=== PATIENT | male | born 1960 | race Caucasian/White ===

== ENCOUNTER 2016-09-21 09:08 | Emergency (ER) | payer OTHER ==
[2016-09-21 09:14] VITALS: O2SAT 98
[2016-09-21 09:15] VITALS: BMI 28.4
--- NOTE | 2016-09-21 10:04 | ED PDOC ---
Lower Extremity Pain/Injury Time Seen by Provider: 09/21/16 09:42 Chief Complaint (Nursing): Lower Extremity Problem/Injury Chief Complaint (Provider): Right foot swelling and pain History Per: Patient History/Exam Limitations: no limitations Onset/Duration Of Symptoms: Days (x2 days) Current Symptoms Are (Timing): Still Present Pain Scale Rating Of: 10 Additional History Per: Family Additional Complaint(s): Galileo Lucas is a 56-year-old male who was brought by family to the emergency department for an evaluation of the right foot for swelling/pain and nausea, ongoing x2 days. Patient first noticed the swelling yesterday morning when he woke up and iced the area without relief. The swelling has increased over the past 24 hours. Patient reports being unable to sleep last night due to pain. Denies taking medications for the relief of symptoms, fever, fall and injury. PMD: None reported Past Medical History Reviewed: Historical Data, Nursing Documentation, Vital Signs Vital Signs: Last Vital Signs Temp 97 F L 09/21/16 09:13 Pulse 66 09/21/16 09:13 Resp BP 112/57 L 09/21/16 09:13 Pulse Ox 98 09/21/16 09:13 - Medical History PMH: No Chronic Diseases - Surgical History Surgical History: Cholecystectomy - Family History Family History: States: Unknown Family Hx - Social History Current smoker - smoking cessation education provided: No Alcohol: None Drugs: Denies - Home Medications Home Medications: Ambulatory Orders Medication Instructions Recorded Erythromycin 0.5% [Erythromycin] 1 applic RIGHTEYE Q6 #1 tube 09/13/15 Tramadol HCl [Ultram] 50 mg PO BID PRN #30 tablet 09/13/15 Naproxen [Naprosyn] 500 mg PO BID PRN #20 tablet 09/21/16 - Allergies Allergies/Adverse Reactions: Allergies Allergy/AdvReac Type Severity Reaction Status Date / Time Penicillins Allergy RASH Verified 09/13/15 20:50 Review of Systems ROS Statement: Except As Marked, All Systems Reviewed And Found Negative Constitutional: Negative for: Fever, Other (Fall or injury) Gastrointestinal: Positive for: Nausea Musculoskeletal: Positive for: Foot Pain (Right foot swelling and pain) Physical Exam - Reviewed Nursing Documentation Reviewed: Yes Vital Signs Reviewed: Yes - Physical Exam Appears: Positive for: Non-toxic, No Acute Distress Head Exam: Positive for: ATRAUMATIC, NORMAL INSPECTION, NORMOCEPHALIC Skin: Positive for: Normal Color, Warm, Dry Eye Exam: Positive for: EOMI, Normal appearance, PERRL Neck: Positive for: Normal, Painless ROM, Supple Pulses-Dorsalis Pedis (L): 2+ Pulses-Dorsalis Pedis (R): 2+ Extremity: Positive for: Tenderness (Right foot), Swelling (Erythema to the lateral malleolar area with edema. Sensation intact). Negative for: Normal ROM Neurologic/Psych: Positive for: Alert, Oriented. Negative for: Motor/Sensory Deficits - Laboratory Results Result Diagrams: 09/21/16 10:13 07 10:13 - ECG O2 Sat by Pulse Oximetry: 98 (RA) Pulse Ox Interpretation: Normal Medical Decision Making Medical Decision Making: Time: 10:00 Initial impression: Right foot swelling Initial plan: ---CMP ---CBC ---Uric acid ---PTT ---Prothrombin time ---X-Ray right ankle ---X-Ray right foot ---Toradol 15 mg IM ---Reassessment Time: 12: 17 --X-ray of the ankle and foot show no significant abnormalities (read by me). --Pending podiatry cash person to come and evaluate patient. Pt evaluated by Podiatry, findings c/w gout. Discharge home with NSAIDs to follow-up with Podiatry Clinic. Scribe Attestation: Documented by Analy Ivey, acting as a scribe for Katja Yuen MD. Provider Scribe Attestation: All medical record entries made by the Scribe were at my direction and personally dictated by me. I have reviewed the chart and agree that the record accurately reflects my personal performance of the history, physical exam, medical decision making, and the department course for this patient. I have also personally directed, reviewed, and agree with the discharge instructions and disposition. Disposition - Clinical Impression Clinical Impression: Gout of ankle - Disposition Referrals: Podiatry Clinic [Outside] Disposition: Routine/Home Disposition Time: 13:36 Condition: STABLE Prescriptions: Naproxen [Naprosyn] 500 mg PO BID PRN #20 tablet PRN Reason: Pain, Moderate (4-7) Instructions: Gout (ED) Print Language: MALTESE
[2016-09-21 10:18] LABS: BASO % 0.4 % (0.0-2.0); EOS # 0.1 K/uL (0.0-0.7); HEMOGLOBIN 15.6 g/dL (12.0-18.0); LYMPH # 1.5 K/uL (1.0-4.3); LYMPH % 18.7 % (20.0-40.0); MEAN CORPUSCULAR HEMOGLOBIN 29.8 pg (27.0-31.0); MEAN CORPUSCULAR HGB CONC 34.3 g/dL (33.0-37.0); MONO # 0.9 K/uL (0.0-0.8); MONO % 10.9 % (0.0-10.0); NEUT # 5.5 K/uL (1.8-7.0); NRBC % 0.1 % (0.0-0.0); RBC 5.23 Mil/uL (4.40-5.90); RED CELL DISTRIBUTION WIDTH 13.6 % (11.5-14.5)
[2016-09-21 10:35] LABS: ALB/GLOB RATIO 1.4 (1.0-2.1); ALBUMIN 4.4 g/dL (3.5-5.0); ALT/SGPT 60 U/L (21-72); AST/SGOT 36 U/L (17-59); BLOOD UREA NITROGEN 24 mg/dl (9-20); CALCIUM 9.4 mg/dL (8.4-10.2); GFR AFRICAN-AMERICAN > 60; GFR NON-AFRICAN AMERICAN > 60; URIC ACID 4.1 mg/Dl (3.5-8.5)
[2016-09-21 10:41] LABS: PARTIAL THROMBOPLASTIN TIME 31.8 Seconds (25.6-37.1); PROTHROMBIN TIME 11.7 Seconds (9.8-13.1)
[2016-09-21 14:07] VITALS: BP 126/78; PULSE 78; RESP 19; TEMP 97.6
--- NOTE | 2016-09-21 14:08 | RAD ---
PROCEDURE: Right Ankle Radiographs. HISTORY: Lateral pain, redness, swelling COMPARISON: None FINDINGS: BONES: No evidence of acute displaced fracture nor dislocation. Osseous structures appear intact. Talar dome intact. . JOINTS: Ankle mortise maintained. . There is a tiny osteophyte seen arising from the inferior tip of the medial malleolus with minor degenerative changes along the medial aspect of the tibiotalar articulation. Mild soft tissue swelling overlying the lateral and to a lesser degree medial malleoli. SOFT TISSUES: Normal. OTHER FINDINGS: None. IMPRESSION: No evidence of acute displaced fracture nor dislocation. Minor degenerative changes tibiotalar articulation changes. Mild soft tissue swelling lateral greater than medial.
--- NOTE | 2016-09-21 14:12 | RAD ---
PROCEDURE: Right Foot Radiographs. HISTORY: Lateral pain COMPARISON: None. FINDINGS: BONES: No evidence of acute displaced fracture nor dislocation. Probable old healed fracture deformity proximal aspect 3rd metatarsal JOINTS: Minor degenerative changes with small osteophytes seen arising from the anterior and inferior margins of the distal tibia. . SOFT TISSUES: Minor soft tissue swelling lateral greater than medial OTHER FINDINGS: None. IMPRESSION: No evidence of acute displaced fracture nor dislocation. . Probable old healed fracture deformity proximal 3rd metatarsal Minor degenerative changes medial aspect right tibiotalar articulation. Minor soft tissue swelling lateral greater than medial
--- NOTE | 2016-09-21 14:26 | CP.PCM.CON ---
History of Present Illness - History of Present Illness History of Present Illness: 56 y/o male with no significant PMHx seen at bedside in ED complaining of pain and swelling in his right ankle. Pt states that the pain started yesterday and it mckenzie progressively gotten worst from then on. Pt states that this morning his pain was 10/10 on VAS which prompted him to come to the ED. Pt states that he did not take any pain medications prior to his arrival to the ED. Pt denies of any trauma or injury to the foot. 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 Pt states that this happens in his knee joint as well as shoulder joint at time to time. Pt describes his diet as very red meat heavy. Pt denies of trying any new activity or new shoe gear. Pt denies of any recent F/V/C/SOB today. No other pedal complains are noted at this time. PMHx: denies PSHx: denies SHx: denies Allergies: Penicillins Review of Systems - Constitutional Constitutional: As Per HPI Past Patient History - Infectious Disease Hx of Infectious Diseases: None - Past Social History Alcohol: None Drugs: Denies - PSYCHIATRIC Hx Substance Use: No - SURGICAL HISTORY Hx Cholecystectomy: Yes - ANESTHESIA Hx Anesthesia: Yes Meds Home Medications: Home Medication List Medication Instructions Recorded Confirmed Type Naproxen [Naprosyn] 500 mg PO BID PRN #20 tablet 09/21/16 Rx Allergies/Adverse Reactions: Allergies Allergy/AdvReac Type Severity Reaction Status Date / Time Penicillins Allergy RASH Verified 09/13/15 20:50 Physical Exam - Constitutional Appears: Well, Non-toxic, No Acute Distress - Extremities Exam Additional comments: VASC: DP/PT pulses are palpable 2/4 b/l, DESKTOP ENGINEER: < 3 sec to all digits, temperature gradient is warm to cool on the left and warm to warm on the right, non-pitting edema with erythema noted on the lateral aspect of the right ankle as well as medial aspect DERM: no open lesions, no interdigital maceration, skin is intact with no puncturing of the skin surrounding the right ankle, no clinical suspicion of infection NEURO: protective sensation grossly intact ORTHO: MMT: 4/5 on the right and 5/5 on left during dorsiflexion, plantarflexion , inversion and eversion. slightly diminished ROM at the ankle joint on the right, pain upon palpation on the posterior lateral aspect of the lateral malleolus, diffuse pain surrounding the anterior ankle as well as medial ankle, mild pain on plantarflexion and eversion at the ankle joint, Parks test is negative, no pain on palpation of the calf b/l - Neurological Exam Neurological exam: Alert, Oriented x3 - Psychiatric Exam Psychiatric exam: Normal Affect, Normal Mood Results - Vital Signs Recent Vital Signs: Last Vital Signs Temp 97.6 F 09/21/16 14:04 Pulse 78 09/21/16 14:04 Resp 19 09/21/16 14:04 BP 126/78 09/21/16 14:04 Pulse Ox 98 09/21/16 14:04 - Labs Result Diagrams: 09/21/16 10:13 09/21/16 10:13 Labs: Laboratory Results - last 24 hr 09/21/16 09/21/16 09/21/16 10:13 10:13 10:13 WBC 8.0 RBC 5.23 Hgb 15.6 Hct 45.5 MCV 87.0 MCH 29.8 MCHC 34.3 RDW 13.6 Plt Count 148 MPV 10.0 Neut % (Auto) 69.0 Lymph % (Auto) 18.7 L Petroleum % (Auto) 10.9 H Eos % (Auto) 1.0 Baso % (Auto) 0.4 Neut # 5.5 Lymph # 1.5 Petroleum # 0.9 H Eos # 0.1 Baso # 0.0 PT 11.7 INR 1.0 APTT 31.8 Sodium 138 Potassium 3.8 Chloride 101 Carbon Dioxide 27 Anion Gap 13 BUN 24 H Creatinine 0.7 L Est GFR ( Amer) > 60 Est GFR (Non-Af Amer) > 60 Random Glucose 97 Uric Acid 4.1 Calcium 9.4 Total Bilirubin 0.7 AST 36 ALT 60 Alkaline Phosphatase 88 Total Protein 7.6 Albumin 4.4 Globulin 3.2 Albumin/Globulin Ratio 1.4 Assessment & Plan - Assessment and Plan (Free Text) Assessment: 56 y/o male seen at bedside in ED for pain in the right ankle secondary to gouty attack Plan: Pt evaluated and chart reviewed Pt discussed in details with attending Dr. Veronica Vitals and labs reviewed (pt is afebrile, WBC @ 8.0 and uric acid levels are 4.1 ) x-rays taken and reviewed: no gross cristiane abnormalities noted, no fractures, no malalignment of the ankle joint noted Pt educated the possible etiology of the ankle pain and educated to change his diet Pt educated to elevate the leg and provide compression using an KAYCEE bandage Pt given an anti-inflammatory to manage his pain Pt educated to follow up in podiatry clinic Pt educated if the symptoms get worst or if any systemic symptomes are felt then return to ED sooner Pt demonstrated verbal understanding Pt stable from podiatry standpoint Thank you for podiatry consult - Date & Time Date: 09/21/16 Time: 14:37
== END 2016-09-21 14:07 | disposition home or self-care (01) ==
LOC: H.ER 09:08
DX: M10.071 Idiopathic gout, right ankle and foot (principal); Z88.0 Allergy status to penicillin

== ENCOUNTER 2016-11-25 15:14 | Observation (INO) | payer SELFPAY ==
[2016-11-25 15:14] VITALS: BMI 28.4
[2016-11-25 16:19] LABS: BASO % 0.4 % (0.0-2.0); EOS # 0.1 K/uL (0.0-0.7); EOS % 1.2 % (0.0-4.0); HEMATOCRIT 44.7 % (35.0-51.0); LYMPH # 2.1 K/uL (1.0-4.3); LYMPH % 36.3 % (20.0-40.0); MEAN CELL VOLUME 87.3 fl (80.0-94.0); MEAN CORPUSCULAR HEMOGLOBIN 29.5 pg (27.0-31.0); MEAN CORPUSCULAR HGB CONC 33.7 g/dL (33.0-37.0); MEAN PLATELET VOLUME 10.6 fl (7.2-11.7); MONO # 0.5 K/uL (0.0-0.8); NEUT # 3.1 K/uL (1.8-7.0); NEUT % 53.1 % (50.0-75.0); RED CELL DISTRIBUTION WIDTH 13.4 % (11.5-14.5); WHITE BLOOD COUNT 5.9 K/uL (4.8-10.8)
--- NOTE | 2016-11-25 16:21 | ED PDOC ---
HPI: Chest Pain History Per: Patient (Patient is a 56 yo male with no significant PMHX presenting to ED with complaints of chest pain for the past month. He states that was recently admitted to [facility] 4 weeks ago for chest pain in which he was ultimately sent to the laboratory analyst that revealed no abnormalities. He did not have any stents or cardiac procedures during his stay and was discharged on metropolol. Since then, his chest pain has persisted. He localizes the pain to his left anterior chest wall, non radiating, pressure- like but sometimes sharp. Pain is sometimes brought on by physical activity but he also experiences the pain at rest as well. Pain is allleviated by aspirin. 4 days ago, he states that while driving he experienced an episode of extreme chest pain associated with palpatations, dysarthria, and numbness of his left arm and generalized weakness that resolved spontaneously within 15 minutes. When asked, he reports feeling very anxious and as per his daughter, he has a lot of stress in his life. He denies fever, cough, sob, LE swelling, dysuria, n/ v/d, abdominal pain, or weakness in extremitities. ), Family <Sotero Albright - Last Filed: 11/25/16 17:49> <Alex Tian - Last Filed: 11/25/16 18:30> Time Seen by Provider: 11/25/16 15:28 Chief Complaint (Nursing): Chest Pain Supervising Attending Note - Supervising Attending Note The Documented history was done by the: Physician Clinical Training Specialist, Attending Physician The documented physical exam was done by the: Physician Clinical Training Specialist, Attending Physician The documented procedures were done by the: Physician Clinical Training Specialist, Attending Physician - Attestation: I have personally seen and examined this patient.: Yes I have fully participated in the care of the patient.: Yes I have reviewed all pertinent clinical information: Yes <Alex Tian - Last Filed: 11/25/16 18:30> Past Medical History - Medical History PMH: HTN - Surgical History Surgical History: Cholecystectomy - Family History Family History: States: Unknown Family Hx - Living Arrangements Living Arrangements: With Family - Social History Current smoker - smoking cessation education provided: No Alcohol: None Drugs: Denies <Sotero Albright - Last Filed: 11/25/16 17:49> <Alex Tian - Last Filed: 11/25/16 18:30> Vital Signs: Last Vital Signs Temp 98.0 F 11/25/16 15:17 Pulse 50 L 11/25/16 16:10 Resp 16 11/25/16 15:17 BP 145/72 11/25/16 16:10 Pulse Ox 98 11/25/16 17:50 - Home Medications Home Medications: Ambulatory Orders Medication Instructions Recorded Aspirin [Ecotrin] 81 mg PO DAILY 11/25/16 Metoprolol Succinate [Toprol XL] 25 mg PO DAILY 11/25/16 Nabumetone [Relafen] 750 mg PO BID PRN 11/25/16 tiZANidine [Zanaflex] 2 mg PO DAILY PRN 11/25/16 - Allergies Allergies/Adverse Reactions: Allergies Allergy/AdvReac Type Severity Reaction Status Date / Time Penicillins Allergy RASH Verified 09/13/15 20:50 BETHEL Risk Score for UA/NSTEMI - BETHEL Risk Score Age > 64: NO 3 or more CAD Risk Factors: NO Known CAD (Stenosis greater than 50%): NO Aspirin use in past 7 days: YES Severe Angina: NO EKG ST changes greater than 0.5mm: NO Positive Cardiac Marker: NO BETHEL Score: 1 Risk %: 5% <Sotero Albright - Last Filed: 11/25/16 17:49> Wells Criteria for PE - Wells Criteria for Pulmonary Embolism Clinical Signs and Symptoms of DVT: No P.E is #1 Diagnosis, or Equally Likely: No Heart Rate >100: No Immobilization at least 3 days;Surgery previous 4 weeks: No Previous, objectively diagnosed PE or DVT: No Hemoptysis: No Malignancy w/treatment within 6 months, or palliative: No Total Score: 0 <Alex Tian - Last Filed: 11/25/16 18:30> Review of Systems Constitutional: Negative for: Fever, Chills, Sweats Cardiovascular: Positive for: Chest Pain, Palpitations. Negative for: Orthopnea , Paroxysmal Noc. Dyspnea, Edema, Light Headedness Respiratory: Negative for: Cough, Shortness of Breath, Pleuritic Pain Gastrointestinal: Negative for: Nausea, Vomiting, Abdominal Pain Genitourinary Male: Negative for: Dysuria, Frequency Musculoskeletal: Positive for: Shoulder Pain Neurological: Positive for: Weakness (generalized), Numbness (Left arm and hand) <Sotero Albright - Last Filed: 11/25/16 17:49> Physical Exam - Reviewed Nursing Documentation Reviewed: Yes Vital Signs Reviewed: Yes - Physical Exam Appears: Positive for: Well (Pt is seen lying in bed comfortable), Non-toxic, No Acute Distress Head Exam: Positive for: ATRAUMATIC, NORMAL INSPECTION, NORMOCEPHALIC Skin: Positive for: Normal Color, Warm, DRY Eye Exam: Positive for: EOMI, Normal appearance, PERRL ENT: Positive for: Normal ENT Inspection Neck: Positive for: Normal, Painless ROM Cardiovascular/Chest: Positive for: Regular Rate, Rhythm, Bradycardia, Other ( Focal tenderness to palpation- Left parasternal region ). Negative for: Edema, JVD, Murmur Respiratory: Positive for: Normal Breath Sounds. Negative for: Accessory Muscle Use, Crackles, Rales, Wheezing Pulses-Dorsalis Pedis (L): 2+ Pulses-Dorsalis Pedis (R): 2+ Pulses-Radial (L): 2+ Pulses-Radial (R): 2+ Gastrointestinal/Abdominal: Positive for: Normal Exam, Bowel Sounds, Soft. Negative for: Tenderness Back: Positive for: Normal Inspection Extremity: Positive for: Normal ROM. Negative for: Pedal Edema, Swelling Neurologic/Psych: Positive for: Alert, nutritionalist II-XII, Oriented. Negative for: Motor/Sensory Deficits, Facial Droop <Jose RamonSotero - Last Filed: 11/25/16 17:49> - Laboratory Results Result Diagrams: 11/25/16 16:10 11/25/16 16:10 - ECG O2 Sat by Pulse Oximetry: 98 <Sotero Albright - Last Filed: 11/25/16 17:49> - Laboratory Results Result Diagrams: 11/25/16 16:10 11/25/16 16:10 <Alex Tian A - Last Filed: 11/25/16 18:30> Medical Decision Making <Sotero Albright - Last Filed: 11/25/16 17:49> <Alex Tian A - Last Filed: 11/25/16 18:30> Medical Decision Making: Pt is a 56 yo male with no PMHx presenting to ED with persistent chest pain for the past month. Pt recently had ACS ruled out via cath in [place] 4 weeks ago and was seen at the ED at [place] 4 days ago for the same reason. Ed Course: EKG: Sinus Bradycardia Aspirin 244mg PO (pt took 81mg that morning) Troponin Cxray CBC BMP Utox (Sotero Albright) Disposition - Patient ED Disposition Is Patient to be Admitted: Yes - Disposition Disposition Time: 17:50 <Sotero Albright - Last Filed: 11/25/16 17:49> Discussed With : Chapincito Garcia Counseled Patient/Family Regarding: Studies Performed, Diagnosis - Pt Status Changed To: Hospital Disposition Of: Observation - POA Present On Arrival: None <Alxe Tian - Last Filed: 11/25/16 18:30> - Clinical Impression Clinical Impression: Chest pain - Disposition Condition: STABLE
[2016-11-25 16:31] LABS: BLOOD UREA NITROGEN 25 mg/dl (9-20); CALCIUM 9.6 mg/dL (8.4-10.2); CARBON DIOXIDE 27 mmol/L (22-30); CHLORIDE 102 mmol/L (98-107); GFR AFRICAN-AMERICAN > 60; GLUCOSE,RANDOM 81 mg/dL (75-110); POTASSIUM 3.9 MMOL/L (3.6-5.0); SODIUM 141 mmol/l (132-148)
--- NOTE | 2016-11-25 16:52 | RAD ---
PROCEDURE: CHEST RADIOGRAPH, 1 VIEW HISTORY: chest pain COMPARISON: 09/30/2009. FINDINGS: LUNGS: Clear. PLEURA: No pneumothorax or pleural fluid seen. CARDIOVASCULAR: No radiographic findings to suggest acute or significant cardiovascular disease. OSSEOUS STRUCTURES: No significant abnormalities. VISUALIZED UPPER ABDOMEN: Normal. OTHER FINDINGS: None. IMPRESSION: No active disease. No acute/significant interval changes.
--- NOTE | 2016-11-25 18:16 | CT ---
PROCEDURE: CT HEAD WITHOUT CONTRAST. HISTORY: Hx of Left arm weakness, Hx of Dysarthria COMPARISON: None available. TECHNIQUE: Axial computed tomography images were obtained through the head/brain without intravenous contrast. Radiation dose: Total exam DLP = 807 mGy-cm. This CT exam was performed using one or more of the following dose reduction techniques: Automated exposure control, adjustment of the mA and/or kV according to patient size, and/or use of iterative reconstruction technique. FINDINGS: HEMORRHAGE: No intracranial hemorrhage. BRAIN: No mass effect or edema. No atrophy or chronic microvascular ischemic changes. VENTRICLES: Unremarkable. No hydrocephalus. CALVARIUM: Unremarkable. PARANASAL SINUSES: Unremarkable as visualized. No significant inflammatory changes. MASTOID AIR CELLS: Unremarkable as visualized. No inflammatory changes. OTHER FINDINGS: None. IMPRESSION: Normal CT of the Head.
--- NOTE | 2016-11-25 19:29 | CP.PCM.HP ---
History of Present Illness - History of Present Illness History of Present Illness: CC/HPI: Pt. seen and examined in the E.D. Pt's daughter present. Pt. sent to the E.D. via ambulance from [facility] for evaluation of chest pain. Pt. states he had an episode of left sided chest pain while waiting to see his PMD Dr. Thurman. Pt. states the pain resolved spontaneously after 15 minutes. Pt. states he has had previous episodes of non-exertional chest pain over the course of one month. Pt. states previous episode of chest pain occurred four days ago while he was driving lasted for 15 to 20 minutes subsequently patient pulled over to the side of the road and was taken to [facility] and subsequently discharged without any further intervention. Pt. reports this episode of chest pain was also associated with left arm numbness, weakness, slurred speech, and palpitations. Pt. also states that in October 09 he had a cardiac cath at [facility] and was started on metoprolol succinate 25mg once daily with no cardiac intervention performed. Pt. at this time denies any weakness, slurred speech, headache, visual changes, incontinence, shortness of breath, or chest pain. Pt. also denies pleuritic chest pain, abdominal pain, nausea, vomiting, diarrhea, or joint pain. ROS: Pt. does report a mechanical fall that occurred approximately one and half month ago. Pt. reports he fall on his right shoulder. Pt. states he saw a doctor in [place], [place] and was prescribed Zanaflex and Relafen which has has been taking with some relief. Pt. states pain in RT. shoulder is aggravated by overhead movements and has been favoring his RT. arm (dominant arm) and using left arm more. PMHx: HTN, Gout, Cardiac cath with normal findings at [facility](as per patient) PSHx: Cholecystectomy, Left forearm fracture FMHx: Mother due to Breast Cancer in [place] ScHx: TOB, ETOH, DRUG None Works in construction Lives with Daughter and , One daughter and One son live out of state Allergies: PCN - Severe Hives Home/Current Meds: Medication Instructions Recorded Aspirin [Ecotrin] 81 mg PO DAILY 11/25/16 Metoprolol Succinate [Toprol XL] 25 mg PO DAILY 11/25/16 Nabumetone [Relafen] 750 mg PO BID PRN 11/25/16 tiZANidine [Zanaflex] 2 mg PO DAILY PRN 11/25/16 PMD: Dr. Chata Thurman at [facility] Person to contact- Daughter Soina [phone] E.D. Course EKG: Sinus Bradycardia Aspirin 244mg PO (pt took 81mg this morning) Troponin Cxray CBC BMP Utox Present on Admission - Present on Admission Any Indicators Present on Admission: No History of DVT/PE: No History of Uncontrolled Diabetes: No Urinary Catheter: No Decubitus Ulcer Present: No Review of Systems - Review of Systems Review of Systems: See HPI Past Patient History - Infectious Disease Hx of Infectious Diseases: None - Past Social History Alcohol: None Drugs: Denies - CARDIAC Hx Hypertension: Yes - PSYCHIATRIC Hx Substance Use: No - SURGICAL HISTORY Hx Cholecystectomy: Yes - ANESTHESIA Hx Anesthesia: Yes Meds Allergies/Adverse Reactions: Allergies Allergy/AdvReac Type Severity Reaction Status Date / Time Penicillins Allergy RASH Verified 09/13/15 20:50 Physical Exam - Constitutional Appears: Non-toxic, No Acute Distress - Head Exam Head Exam: ATRAUMATIC, NORMOCEPHALIC - Eye Exam Eye Exam: Normal appearance. absent: Scleral icterus - ENT Exam ENT Exam: Mucous Membranes Dry (Mild ) - Neck Exam Neck exam: Positive for: Full Rom - Respiratory Exam Respiratory Exam: Clear to Auscultation Bilateral, NORMAL BREATHING PATTERN - Cardiovascular Exam Cardiovascular Exam: +S1, +S2. absent: Systolic Murmur Additional comments: +Positive Left chest wall tenderness - GI/Abdominal Exam GI & Abdominal Exam: Normal Bowel Sounds, Soft. absent: Tenderness - Extremities Exam Extremities exam: Positive for: normal inspection. Negative for: calf tenderness Additional comments: RT. upper extremity +Pain on Abduction 30 to 40 degrees +Drop Arm test +Pain on palpation of AC joint and Greater Tuberosity Strength intact 5/5 bilat upper extremities Radial pulses +2/2 bilat upper extremities Sensation intact - Neurological Exam Neurological exam: Alert, CN II-XII Intact, Oriented x3 - Psychiatric Exam Psychiatric exam: Normal Affect, Normal Mood Results - Vital Signs Recent Vital Signs: Last Vital Signs Temp 98.0 F 11/25/16 15:17 Pulse 50 L 11/25/16 16:10 Resp 16 11/25/16 15:17 BP 145/72 11/25/16 16:10 Pulse Ox 98 11/25/16 17:50 - Labs Result Diagrams: 11/25/16 16:10 11/25/16 16:10 Assessment & Plan - Assessment and Plan (Free Text) Assessment: 56 y.o. male admitted for chest pain. Recurrent Chest pain of unclear etiology which is reproducible on palpation, most likely non-cardiac, BETHEL score 1, Wells Criteria 0 1- Troponin x 1 negative, Trend Troponins 2- Continue ASA 81mg 3- Start statin 20mg- Will get Lipid panel, HbA1c in the a.m. to calculate ASCVD 4- Ibuprofen 600mg Mild Pain 5- Toradol 30mg IVP Moderate Pain 6- Morphine 2mg IVP Severe Pain 7- Will get urine metanephrine given patient's recurrent chest pain at rest Sinus Bradycardia- Asymptomatic 1- Will hold Metoprololol RT. Shoulder Pain of unclear etiology most likely Rotater cuff tear based on physical exam 1- Will get Rt. shoulder XR- Fall protocol 2- MRI as an outpatient 3- NSAIDS PRN BUn elevated- Most likely due to dehydration Specific gravity 1.020 1- N.S at 150 cc/hr x 1 liter 2- Repeat BMP 3- Encourage PO hydration Diet 1- Heart healthy DVT prophylaxis 1- SCD for now
[2016-11-25] MEDS ORDERED: Sodium Chloride 0.9% 1,000 ML IV SCH ×2 (19:45)
[2016-11-25 20:39] LABS: RBC URINE 1 /hpf (0-3); URINE BILIRUBIN NEGATIVE (NEGATIVE); URINE BLOOD NEGATIVE (NEGATIVE); URINE COLOR YELLOW (YELLOW); URINE GLUCOSE (UA) NEG (Normal); URINE KETONE NEGATIVE (NEGATIVE); URINE LEUKOCYTE ESTERASE NEG Leu/uL (Negative); URINE PROTEIN NEGATIVE (NEGATIVE); URINE UROBILINOGEN 0.2-1.0 mg/dL (0.2-1.0); WBC URINE 1 /hpf (0-5)
[2016-11-26 05:53] LABS: BLOOD UREA NITROGEN 25 mg/dl (9-20); CARBON DIOXIDE 24 mmol/L (22-30); CHLORIDE 106 mmol/L (98-107); CHOLESTEROL 177 mg/dL (0-199); GFR AFRICAN-AMERICAN > 60; GLUCOSE,RANDOM 86 mg/dL (75-110); SODIUM 140 mmol/l (132-148)
--- NOTE | 2016-11-26 08:30 | CARD ---
APPROVED REPORT EKG Measurement Heart [id number] <Conclusion> Sinus bradycardia Otherwise normal ECG
--- NOTE | 2016-11-26 09:37 | RAD ---
PROCEDURE: Radiographs of the right humerus. HISTORY: Fall approximatley 4 to 6 weeks ago/Pesistent Pain COMPARISON: None. FINDINGS: BONES: Normal. No fracture or focal lesion. SOFT TISSUES: Normal. OTHER FINDINGS: None. IMPRESSION: Normal radiographs of right humerus.
--- NOTE | 2016-11-26 11:25 | CP.PCM.PN ---
Subjective - Date & Time of Evaluation Date of Evaluation: 11/26/16 Time of Evaluation: 07:15 - Subjective Subjective: Patient was seen and examined in telemetry unit this morning. Patient c/o right shoulder pain, but denies chest pain at this evaluation. Denies cough, chills, dizziness, headaches, N/V or other complains. Patient reports that left lower chest pain episodes, are intermittent, x the last month, no radiating, last for 15 minutes, associated with exertion, relief without medications, associated with burning sensation in the middle of the chest. Afebrile, BP stable, but still bradycardic Objective - Vital Signs/Intake and Output Vital Signs (last 24 hours): Temp Pulse Resp BP Pulse Ox 97.8 F 50 L 20 134/82 96 11/26/16 08:05 11/26/16 08:05 11/26/16 08:05 11/26/16 08:05 11/26/16 08:05 - Medications Medications: Current Medications Atorvastatin Calcium (Lipitor) 20 mg PO HS [facility] Famotidine (Pepcid) 20 mg PO DAILY [facility] Last Admin: 11/26/16 10:42 Dose: Not Given Ibuprofen (Motrin Tab) 600 mg PO Q6 PRN PRN Reason: Pain, Mild (1-3) Ketorolac Tromethamine (Toradol) 30 mg IVP Q6 PRN PRN Reason: Pain, moderate (4-7) Last Admin: 11/26/16 00:59 Dose: 30 mg Morphine Sulfate (Morphine) 2 mg IVP Q6 PRN PRN Reason: Pain, severe (8-10) - Labs Labs: 11/26/16 04:45 - Constitutional Appears: No Acute Distress - ENT Exam ENT Exam: Mucous Membranes Moist - Respiratory Exam Respiratory Exam: Clear to Ausculation Bilateral, NORMAL BREATHING PATTERN. absent: Chest Wall Tenderness, Rales, Rhonchi, Wheezes, Respiratory Distress - Cardiovascular Exam Cardiovascular Exam: REGULAR RHYTHM, +S1, +S2 - GI/Abdominal Exam GI & Abdominal Exam: Soft, Normal Bowel Sounds. absent: Distended, Guarding, Rigid, Tenderness - Extremities Exam Extremities Exam: Normal Inspection. absent: Calf Tenderness, Pedal Edema - Neurological Exam Neurological Exam: Alert, Awake, Oriented x3 - Skin Skin Exam: Dry, Intact, Normal Color Assessment and Plan - Assessment and Plan (Free Text) Assessment: 56 y/o male with h/o recent diagnosed HTN ? admitted with chest pain to R/o ACS. Plan: Left sided chest pain after evaluation chest pain does not look like cardiac etiology, GERD vs musculoskeletal As per patient and his daughter recent cardiac cath ( 3 weeks ago) showed no blockage and no stents were placed. -Troponin I x 2 negative -EKG showed sinus bradycardia, no evidence of ST-T wave changes noted. done on -f/u urine metanephrine -c/w aspirin 81 mg PO -c/w statin -c/w Heart healthy diet -Pepcid 20 mg daily -consider H. Pylori test -Held Home metoprolol -f/u HgbA1C -CVD risk 11.5 % Bradycardia -most likley 2/2 Metoprolol rate control effect -Held Metoprolol for now RT. Shoulder Pain of unclear etiology most likely Rotater cuff tear based on physical exam Rt. shoulder XR showed normal finding, no evidence of Fx MRI as an outpatient NSAIDs PRN Azotemia still BUN slightly elevated Encourage PO hydration DVT prophylaxis SCD for now
[2016-11-26 12:55] VITALS: RESP 18; O2SAT 98
--- NOTE | 2016-11-26 16:08 | CP.PCM.DIS ---
Provider - Provider Date of Admission: 11/25/16 16:44 Attending physician: Radha Cardoso MD Time Spent in preparation of Discharge (in minutes): 30 Diagnosis - Discharge Diagnosis (1) Chest pain Status: Acute Comment: ACS was ruled out on admission. Chest pain free at this time. Could be 2/2 GERD vs Gastritis with also possible musculoskeletal component 2/2 overuse of left UE. started on Famotidine. F/u with PMD in 1 week. (2) History of gout Status: Chronic Comment: on no meds (3) Shoulder pain, right Status: Chronic Comment: F/u MRI. f/u with PMD. Hospital Course - Lab Results Lab Results: Most Recent Lab Values WBC 5.9 K/uL (4.8-10.8) 11/25/16 16:10 RBC 5.12 Mil/uL (4.40-5.90) 11/25/16 16:10 Hgb 15.1 g/dL (12.0-18.0) 11/25/16 16:10 Hct 44.7 % (35.0-51.0) 11/25/16 16:10 MCV 87.3 fl (80.0-94.0) 11/25/16 16:10 MCH 29.5 pg (27.0-31.0) 11/25/16 16:10 MCHC 33.7 g/dL (33.0-37.0) 11/25/16 16:10 RDW 13.4 % (11.5-14.5) 11/25/16 16:10 Plt Count 170 K/uL (130-400) 11/25/16 16:10 MPV 10.6 fl (7.2-11.7) 11/25/16 16:10 Neut % (Auto) 53.1 % (50.0-75.0) 11/25/16 16:10 Lymph % (Auto) 36.3 % (20.0-40.0) 11/25/16 16:10 [place] % (Auto) 9.0 % (0.0-10.0) 11/25/16 16:10 Eos % (Auto) 1.2 % (0.0-4.0) 11/25/16 16:10 Baso % (Auto) 0.4 % (0.0-2.0) 11/25/16 16:10 Neut # 3.1 K/uL (1.8-7.0) 11/25/16 16:10 Lymph # 2.1 K/uL (1.0-4.3) 11/25/16 16:10 [place] # 0.5 K/uL (0.0-0.8) 11/25/16 16:10 Eos # 0.1 K/uL (0.0-0.7) 11/25/16 16:10 Baso # 0.0 K/uL (0.0-0.2) 11/25/16 16:10 Sodium 140 mmol/l (132-148) 11/26/16 04:45 Potassium 4.0 MMOL/L (3.6-5.0) 11/26/16 04:45 Chloride 106 mmol/L (98-107) 11/26/16 04:45 Carbon Dioxide 24 mmol/L (22-30) 11/26/16 04:45 Anion Gap 14 (10-20) 11/26/16 04:45 BUN 25 mg/dl (9-20) H 11/26/16 04:45 Creatinine 0.7 mg/dL (0.8-1.5) L 11/26/16 04:45 Est GFR ( Amer) > 60 11/26/16 04:45 Est GFR (Non-Af Amer) > 60 11/26/16 04:45 Random Glucose 86 mg/dL (75-110) 11/26/16 04:45 Calcium 9.0 mg/dL (8.4-10.2) 11/26/16 04:45 Troponin I < 0.0120 ng/mL (0.00-0.120) 11/26/16 01:10 Triglycerides 131 mg/DL (0-149) 11/26/16 04:45 Cholesterol 177 mg/dL (0-199) 11/26/16 04:45 LDL Cholesterol Direct 121 mg/dL (0-129) 11/26/16 04:45 HDL Cholesterol 35 MG/DL (30-70) 11/26/16 04:45 Urine Color Yellow (YELLOW) 11/25/16 20:17 Urine Clarity Slighty-cloudy (Clear) 11/25/16 20:17 Urine pH 6.0 (5.0-8.0) 11/25/16 20:17 Ur Specific [place] 1.020 (1.003-1.030) 11/25/16 20:17 Urine Protein Negative mg/dL (NEGATIVE) 11/25/16 20:17 Urine Glucose (UA) Neg mg/dL (Normal) 11/25/16 20:17 Urine Ketones Negative mg/dL (NEGATIVE) 11/25/16 20:17 Urine Blood Negative (NEGATIVE) 11/25/16 20:17 Urine Nitrate Negative (NEGATIVE) 11/25/16 20:17 Urine Bilirubin Negative (NEGATIVE) 11/25/16 20:17 Urine Urobilinogen 0.2-1.0 mg/dL (0.2-1.0) 11/25/16 20:17 Ur Leukocyte Esterase Neg Sumi/uL (Negative) 11/25/16 20:17 Urine RBC (Auto) 1 /hpf (0-3) 11/25/16 20:17 Urine Microscopic WBC 1 /hpf (0-5) 11/25/16 20:17 Urine Opiates Screen Negative (NEGATIVE) 11/25/16 20:17 Urine Methadone Screen Negative (NEGATIVE) 11/25/16 20:17 Ur Barbiturates Screen Negative (NEGATIVE) 11/25/16 20:17 Ur Phencyclidine Scrn Negative (NEGATIVE) 11/25/16 20:17 Ur Amphetamines Screen Negative (NEGATIVE) 11/25/16 20:17 U Benzodiazepines Scrn Negative (NEGATIVE) 11/25/16 20:17 U Oth Cocaine Metabols Negative (NEGATIVE) 11/25/16 20:17 U Cannabinoids Screen Negative (NEGATIVE) 11/25/16 20:17 - Hospital Course Hospital Course: 56 y/o M with PMHx of recent diagnosed HTN ?(as per patient and family report), Gout who presented yesterday to ED c/o left sided chest pain and was admitted to r/o ACS. EKG done and showed Sinus bradycardia. CXR showed no active disease. Troponin x 2 were negative. Patient was managed with pain control medications and antacid. Patient's symptoms resolved during admission. ACS was ruled out, but because CVD risk 11.5 % we started him on statin. We also discontinued Metoprolol because sinus bradycardia, and possible associated with previous reported dizziness episode. Head CT on admission was unremarkable. We started Pepcid on this admission to manage possible GERD vs gastritis. We also discontinued Nabumetone and Zanaflex, and we started Lidoderm patch and tylenol OTC to manage chronic right shoulder pain, and will f/u with MRI as outpatient. R shoulder x ray was unremarkable during admission. f/u with PMD in 1 week at [facility]. F/u Metanephrines in urine. Home medications Atorvastatin 20 mg HS daily started on admission aspirin 81 mg PO daily Famotidine 20 mg BID PO started on admission Lidoderm patch 5 % PRN for R shoulder pain. started on this admission Stopped on this admission Metoprolol XL 25 mg daily Nabumetone NSAID Zanaflex muscle relaxant - Date & Time of H&P Date of H&P: 11/25/16 Time of H&P: 19:30 Discharge Exam - Head Exam Head Exam: ATRAUMATIC, NORMOCEPHALIC - ENT Exam ENT Exam: Mucous Membranes Moist - Respiratory Exam Respiratory Exam: Clear to PA & Lateral, NORMAL BREATHING PATTERN. absent: Chest Wall Tenderness, Decreased Breath Sounds, Rales, Rhonchi, Wheezes, Respiratory Distress - Cardiovascular Exam Cardiovascular Exam: REGULAR RHYTHM, +S1, +S2 - GI/Abdominal Exam GI & Abdominal Exam: Normal Bowel Sounds, Soft. absent: Distended, Guarding, Tenderness - Extremities Exam Extremities exam: normal inspection Additional comments: no edema in lower extremities, no calves tenderness noted - Neurological Exam Neurological exam: Alert, Oriented x3 - Psychiatric Exam Psychiatric exam: Normal Affect, Normal Mood - Skin Skin Exam: Dry, Intact, Normal Color Discharge Plan - Discharge Medications Prescriptions: Atorvastatin [Lipitor] 20 mg PO HS #30 tab Famotidine [Heartburn Prevention] 20 mg PO BID #60 tablet Lidocaine 5% [Lidoderm] 1 ea TD DAILY #30 patch - Follow Up Plan Condition: GOOD Disposition: HOME/ ROUTINE Patient education suggested?: Yes Additional Instructions: f/u with PMD in 1 week at [facility] on December 01, 2016 at 3:30 pm.
[2016-11-26 16:14] VITALS: BP 139/79; PULSE 46; TEMP 98.3
== END 2016-11-26 18:40 | disposition home or self-care (01) ==
LOC: H.ER 15:14 → H.ERHOLD 16:44 → H.TEL 11-26 03:25
PROVIDERS: ADMIT Family Medicine Geriatric Medicine; ATTEND Family Medicine Geriatric Medicine
DX: R07.9 Chest pain, unspecified (principal); I10 Essential (primary) hypertension; R00.1 Bradycardia, unspecified; Z88.0 Allergy status to penicillin; M25.511 Pain in right shoulder; R79.89 Other specified abnormal findings of blood chemistry; Z98.61 Coronary angioplasty status
CPT/HCPCS: 70450; 71010; 73060; 80048; 80061; 80324; 80345; 80346; 80349; 80353; 80358; 80361; 81003; 83036; 83835; 83992; 84484; 85025; 93005; 96374; 99283; G0378; J1885; J7040

== ENCOUNTER 2017-04-15 19:14 | Observation (INO) | payer SELFPAY ==
[2017-04-15 19:14] VITALS: BMI 28.4
[2017-04-15] MEDS ORDERED: Sodium Chloride 0.9% 1,000 ML IV STA (20:34)
--- NOTE | 2017-04-15 20:45 | ED PDOC ---
HPI: Abdomen Time Seen by Provider: 04/15/17 20:43 Chief Complaint (Nursing): Abdominal Pain Chief Complaint (Provider): abdominal pain History Per: Patient (56 y/o male here with complaint of generalized abdominal pain located on right side x 4 days. States pain radiating to his back waxing and waning and feels like a cramp. States symptoms began with left sided chest pain intermittent pulsating. Denies any vomiting but states he attempted to make himself vomit. denies any fevers or chills. States he has had cardiac catherization in past wnl. Has had gallbladder removed in past.) Past Medical History Reviewed: Historical Data, Nursing Documentation, Vital Signs Vital Signs: Last Vital Signs Temp 96.0 F L 04/15/17 20:05 Pulse 60 04/15/17 20:05 Resp 16 04/15/17 20:05 BP 126/78 04/15/17 20:05 Pulse Ox 100 04/15/17 22:33 - Medical History PMH: HTN Denies: Chronic Kidney Disease - Surgical History Surgical History: Cholecystectomy - Family History Family History: States: Unknown Family Hx - Home Medications Home Medications: Ambulatory Orders Medication Instructions Recorded Aspirin [Ecotrin] 81 mg PO DAILY 11/25/16 Atorvastatin [Lipitor] 20 mg PO HS #30 tab 11/26/16 Famotidine [Heartburn Prevention] 20 mg PO BID #60 tablet 11/26/16 Lidocaine 5% [Lidoderm] 1 ea TD DAILY #30 patch 11/26/16 - Allergies Allergies/Adverse Reactions: Allergies Allergy/AdvReac Type Severity Reaction Status Date / Time Penicillins Allergy RASH Verified 09/13/15 20:50 Review of Systems ROS Statement: Except As Marked, All Systems Reviewed And Found Negative Cardiovascular: Positive for: Chest Pain Gastrointestinal: Positive for: Abdominal Pain Physical Exam - Reviewed Nursing Documentation Reviewed: Yes Vital Signs Reviewed: Yes - Physical Exam Appears: Positive for: Well, Non-toxic, No Acute Distress Head Exam: Positive for: ATRAUMATIC, NORMAL INSPECTION, NORMOCEPHALIC Skin: Positive for: Normal Color, Warm, DRY Eye Exam: Positive for: EOMI, Normal appearance, PERRL ENT: Positive for: Normal ENT Inspection Neck: Positive for: Normal, Painless ROM Cardiovascular/Chest: Positive for: Regular Rate, Rhythm Respiratory: Positive for: CNT, Normal Breath Sounds Gastrointestinal/Abdominal: Positive for: Normal Exam, Bowel Sounds, Soft, Tenderness (right flank/right CVA tenderness/ rlq pain ) Back: Positive for: Normal Inspection Extremity: Positive for: Normal ROM Neurologic/Psych: Positive for: Alert, Oriented - Laboratory Results Result Diagrams: 04/15/17 20:45 04/15/17 20:45 - ECG O2 Sat by Pulse Oximetry: 100 - Progress ED Course And Treament: CT ABD/PELVIS: FINDINGS: Lower thorax: Minimal atelectasis. RIGHT lower lobe calcified granuloma. ABDOMEN: Liver: Few calcifications. Gallbladder and bile ducts: Cholecystectomy. No significant ductal dilation. Pancreas: Unremarkable. No ductal dilation. Spleen: No splenomegaly. Adrenals: No mass. Kidneys and ureters: No renal calculi. No hydronephrosis. Stomach and bowel: Few scattered diverticula within colon. Apparent minimal stranding about diverticulum along ascending colon. No definite mural thickening. No obstruction. Appendix: Normal caliber. No inflammation. PELVIS: Bladder: Unremarkable. No stones. Reproductive: Unremarkable as visualized. ABDOMEN and PELVIS: Intraperitoneal space: No significant fluid collection. No free air. Bones/joints: Degenerative changes of spine. No acute fracture. Probable bone islands. Soft tissues: Small calcification or clip along anterior abdominal wall. Vasculature: Mild atherosclerotic disease. No aneurysm. Lymph nodes: No pathologically enlarged lymph nodes. IMPRESSION: 1. No definite CT evidence of urolithiasis. 2. Possible early diverticulitis of right colon. 3. Incidental/non-acute findings are described above. Thank you for allowing us to participate in the care of your patient. Dictated and Authenticated by: Giorgio Du MD CIPRO 400 MG IV X 1 DOSE FLAGYL 500 MG IV X 1 DOSE CXR: NAD D/W [employer] 22:45 PM Disposition - Clinical Impression Clinical Impression: Diverticulitis, Chest pain - Patient ED Disposition Is Patient to be Admitted: Yes - Disposition Disposition Time: 22:45 Condition: FAIR Forms: [employer] (Estonian) - Pt Status Changed To: Hospital Disposition Of: Inpatient - Admit Certification Admit to Inpatient:: After my assessment, the patient will require hospitalization for at least two midnights. This is because of the severity of symptoms shown, intensity of services needed, and/or the medical risk in this patient being treated as an outpatient.
[2017-04-15 21:55] LABS: BASO % 0.3 % (0.0-2.0); EOS # 0.1 K/uL (0.0-0.7); EOS % 1.7 % (0.0-4.0); LYMPH # 2.2 K/uL (1.0-4.3); MEAN CELL VOLUME 86.2 fl (80.0-94.0); MEAN CORPUSCULAR HEMOGLOBIN 28.4 pg (27.0-31.0); MEAN CORPUSCULAR HGB CONC 32.9 g/dL (33.0-37.0); MEAN PLATELET VOLUME 9.8 fl (7.2-11.7); MONO # 0.6 K/uL (0.0-0.8); MONO % 8.5 % (0.0-10.0); NEUT # 3.9 K/uL (1.8-7.0); NEUT % 57.5 % (50.0-75.0); NRBC % 0.9 % (0.0-0.0); RBC 5.27 Mil/uL (4.40-5.90); RED CELL DISTRIBUTION WIDTH 13.9 % (11.5-14.5); WHITE BLOOD COUNT 6.7 K/uL (4.8-10.8)
[2017-04-15 22:04] LABS: ALB/GLOB RATIO 1.4 (1.0-2.1); ALBUMIN 4.4 g/dL (3.5-5.0); ALT/SGPT 49 U/L (21-72); AST/SGOT 36 U/L (17-59); BLOOD UREA NITROGEN 25 mg/dl (9-20); CALCIUM 9.5 mg/dL (8.4-10.2); GFR AFRICAN-AMERICAN > 60; GFR NON-AFRICAN AMERICAN > 60; LIPASE 81 U/L (23-300)
--- NOTE | 2017-04-15 22:04 | CT ---
EXAM: CT Abdomen and Pelvis Without Intravenous Contrast CLINICAL HISTORY: 56 years old, male; Pain; Abdominal pain; Flank; Right; Prior surgery; Surgery date: 6+ months; Surgery type: Gb removed; Additional info: Evaluate for renal colic TECHNIQUE: Axial computed tomography images of the abdomen and pelvis without intravenous contrast. All CT scans at this facility use one or more dose reduction techniques, viz.: automated exposure control; ma/kV adjustment per patient size (including targeted exams where dose is matched to indication; i.e. head); or iterative reconstruction technique. Coronal and sagittal reformatted images were created and reviewed. COMPARISON: No relevant prior studies available. FINDINGS: Lower thorax: Minimal atelectasis. RIGHT lower lobe calcified granuloma. ABDOMEN: Liver: Few calcifications. Gallbladder and bile ducts: Cholecystectomy. No significant ductal dilation. Pancreas: Unremarkable. No ductal dilation. Spleen: No splenomegaly. Adrenals: No mass. Kidneys and ureters: No renal calculi. No hydronephrosis. Stomach and bowel: Few scattered diverticula within colon. Apparent minimal stranding about diverticulum along ascending colon. No definite mural thickening. No obstruction. Appendix: Normal caliber. No inflammation. PELVIS: Bladder: Unremarkable. No stones. Reproductive: Unremarkable as visualized. ABDOMEN and PELVIS: Intraperitoneal space: No significant fluid collection. No free air. Bones/joints: Degenerative changes of spine. No acute fracture. Probable bone islands. Soft tissues: Small calcification or clip along anterior abdominal wall. Vasculature: Mild atherosclerotic disease. No aneurysm. Lymph nodes: No pathologically enlarged lymph nodes. IMPRESSION: 1. No definite CT evidence of urolithiasis. 2. Possible early diverticulitis of right colon. 3. Incidental/non-acute findings are described above.
[2017-04-15 22:21] LABS: SQUAMOUS EPITHIAL < 1 /hpf (0-5); URINE BACTERIA RARE (<OCC); URINE BILIRUBIN NEGATIVE (NEGATIVE); URINE BLOOD NEGATIVE (NEGATIVE); URINE CLARITY SLIGHTY-CLOUDY (Clear); URINE COLOR YELLOW (YELLOW); URINE GLUCOSE (UA) NEG (Normal); URINE LEUKOCYTE ESTERASE NEG Leu/uL (Negative); URINE NITRATE NEGATIVE (NEGATIVE); URINE PROTEIN 30 mg/dL (NEGATIVE)
[2017-04-15] MEDS ORDERED: Ciprofloxacin 400mg/200ml D5W 400 MG/200 ML BAG IVPB STA (22:32)
[2017-04-15] MEDS ORDERED: metroNIDAZOLE 500mg/100ml NS 100 ML IVPB STA (22:33)
[2017-04-15] MEDS ORDERED: HYDROmorphone 0.5 mg/0.5 ml ISec IVP STA (22:34)
[2017-04-15] MEDS ORDERED: Ciprofloxacin 400mg/200ml D5W 400 MG/200 ML BAG IVPB ONE (23:03)
[2017-04-15] MEDS ORDERED: metroNIDAZOLE 500mg/100ml NS 100 ML IVPB ONE (23:03)
--- NOTE | 2017-04-16 02:20 | CP.PCM.PN ---
Objective - Vital Signs/Intake and Output Vital Signs (last 24 hours): Temp Pulse Resp BP Pulse Ox 97.8 F 51 L 16 99/57 L 95 04/16/17 01:02 04/16/17 01:02 04/16/17 01:02 04/16/17 01:02 04/16/17 01:02 - Labs Labs: 04/15/17 20:45 04/15/17 20:45
[2017-04-16] MEDS: Sodium Chloride 0.9% 1,000 ML IV SCH (02:50)
--- NOTE | 2017-04-16 03:01 | CP.PCM.HP ---
Past Patient History - Infectious Disease Hx of Infectious Diseases: None - Past Social History Smoking Status: Never Smoked - CARDIAC Hx Hypertension: Yes - PULMONARY Hx Respiratory Disorders: No - NEUROLOGICAL Hx Neurological Disorder: No - HEENT Hx HEENT Problems: No - RENAL Hx Chronic Kidney Disease: No - ENDOCRINE/METABOLIC Hx Endocrine Disorders: No - HEMATOLOGICAL/ONCOLOGICAL Hx Blood Disorders: No - INTEGUMENTARY Hx Dermatological Problems: No - MUSCULOSKELETAL/RHEUMATOLOGICAL Hx Musculoskeletal Disorders: Yes Hx Falls: Yes (fell 4-6 wks ago) - GASTROINTESTINAL Hx Gastrointestinal Disorders: No - GENITOURINARY/GYNECOLOGICAL Hx Genitourinary Disorders: No - PSYCHIATRIC Hx Psychophysiologic Disorder: No Hx Substance Use: No - SURGICAL HISTORY Hx Cholecystectomy: Yes - ANESTHESIA Hx Anesthesia: Yes Meds Allergies/Adverse Reactions: Allergies Allergy/AdvReac Type Severity Reaction Status Date / Time Penicillins Allergy RASH Verified 09/13/15 20:50 Results - Vital Signs Recent Vital Signs: Last Vital Signs Temp 97.8 F 04/16/17 01:02 Pulse 51 L 04/16/17 01:02 Resp 16 04/16/17 01:02 BP 99/57 L 04/16/17 01:02 Pulse Ox 95 04/16/17 01:02 - Labs Result Diagrams: 04/15/17 20:45 04/15/17 20:45 Labs: Laboratory Results - last 24 hr 04/15/17 04/15/17 04/15/17 20:45 20:45 21:00 WBC 6.7 RBC 5.27 Hgb 15.0 Hct 45.4 MCV 86.2 MCH 28.4 MCHC 32.9 L RDW 13.9 Plt Count 164 MPV 9.8 Neut % (Auto) 57.5 Lymph % (Auto) 32.0 [place] % (Auto) 8.5 Eos % (Auto) 1.7 Baso % (Auto) 0.3 Neut # (Auto) 3.9 Lymph # (Auto) 2.2 [place] # (Auto) 0.6 Eos # (Auto) 0.1 Baso # (Auto) 0.0 Sodium 142 Potassium 3.7 Chloride 101 Carbon Dioxide 30 Anion Gap 15 BUN 25 H Creatinine 0.9 Est GFR ( Amer) > 60 Est GFR (Non-Af Amer) > 60 Random Glucose 84 Calcium 9.5 Total Bilirubin 0.7 AST 36 ALT 49 Alkaline Phosphatase 86 Troponin I < 0.0120 Total Protein 7.5 Albumin 4.4 Globulin 3.1 Albumin/Globulin Ratio 1.4 Lipase 81 Urine Color Yellow Urine Clarity Slighty-cloudy Urine pH 5.0 Ur Specific [place] 1.029 Urine Protein 30 Urine Glucose (UA) Neg Urine Ketones Negative Urine Blood Negative Urine Nitrate Negative Urine Bilirubin Negative Urine Urobilinogen 2.0 Ur Leukocyte Esterase Neg Urine RBC (Auto) 2 Urine Microscopic WBC 2 Ur Squamous Epith Cells < 1 Urine Bacteria Rare
[2017-04-16] MEDS ORDERED: metroNIDAZOLE 500mg/100ml NS IVPB SCH (04:00)
[2017-04-16] MEDS ORDERED: metroNIDAZOLE 500mg/100ml NS 100 ML IVPB ONE ×2 (04:36→09:42)
[2017-04-16] MEDS: metroNIDAZOLE 500mg/100ml NS 100 ML IVPB SCH ×4 (04:57→22:13)
--- NOTE | 2017-04-16 05:16 | CP.PCM.HP ---
History of Present Illness - History of Present Illness History of Present Illness: 56 yo ,m, PMHx/o HTN, Gout, NSTEMI( Cardiac cath with normal findings at [facility](as per patient) presents to ED c/o Abdominal pain and chest pain started 4 days ago. Reports symptoms began with LLQ abd pain radiated to chest left side, intermittent, not related with any particular event or diet change. chest pain 5-6 /10 in intensity, sharp, not related with deep inspiration or arm movement. Patient states that today the abdominal pain is RUQ and right flank, 9/10 in intensity associated with abd bloating sensation, nausea yesterday. He denies vomiting, diarrhea, fever, cough, SOB, palpitation, hematuria, abd trauma. Reports he was seen in the past 12/[address] Holloway and stress test was ordered buy he got late to the appt and could not schedule a new appt. PMD: [facility] last visit 11/2016 Dr Hardin Allergies: PCN - Severe Hives Meds: Aspirin. Reports had not anymore refill of colesterol medication( atorvastatin 40 ) PMHx: HTN, Gout, Cardiac cath with normal findings at [facility](as per patient) PSHx: Cholecystectomy, Left forearm fracture FMHx: Mother due to Colon cancer ScHx: No ETOH,rect drugs, cig Works in construction ED Course VS: normal Labs: CBC normal, CMP BUN 25, trop ng x 1, urine normal Imaging: EKG:sinus bradycardia HR: 56, no ischemic changes,, CXR: normal. pending final report . CT abd:No definite CT evidence of urolithiasis.Possible early diverticulitis of right colon. Treatment: NS 1l, zofran, dilaudid, ciproflox, flagyl x 1dose, toradol Present on Admission - Present on Admission Any Indicators Present on Admission: No History of DVT/PE: No History of Uncontrolled Diabetes: No Review of Systems - Cardiovascular Cardiovascular: As Per HPI - Respiratory Respiratory: As Per HPI - Gastrointestinal Gastrointestinal: As Per HPI - Genitourinary Genitourinary: As Per HPI Past Patient History - Infectious Disease Hx of Infectious Diseases: None - Past Social History Smoking Status: Never Smoked - CARDIAC Hx Hypertension: Yes - PULMONARY Hx Respiratory Disorders: No - NEUROLOGICAL Hx Neurological Disorder: No - HEENT Hx HEENT Problems: No - RENAL Hx Chronic Kidney Disease: No - ENDOCRINE/METABOLIC Hx Endocrine Disorders: No - HEMATOLOGICAL/ONCOLOGICAL Hx Blood Disorders: No - INTEGUMENTARY Hx Dermatological Problems: No - MUSCULOSKELETAL/RHEUMATOLOGICAL Hx Musculoskeletal Disorders: Yes Hx Falls: Yes (fell 4-6 wks ago) - GASTROINTESTINAL Hx Gastrointestinal Disorders: No - GENITOURINARY/GYNECOLOGICAL Hx Genitourinary Disorders: No - PSYCHIATRIC Hx Psychophysiologic Disorder: No Hx Substance Use: No - SURGICAL HISTORY Hx Cholecystectomy: Yes - ANESTHESIA Hx Anesthesia: Yes Meds Allergies/Adverse Reactions: Allergies Allergy/AdvReac Type Severity Reaction Status Date / Time Penicillins Allergy RASH Verified 09/13/15 20:50 Physical Exam - Constitutional Appears: Non-toxic, No Acute Distress - Head Exam Head Exam: ATRAUMATIC, NORMOCEPHALIC - Eye Exam Eye Exam: Normal appearance - ENT Exam ENT Exam: Mucous Membranes Moist - Neck Exam Neck exam: Positive for: Normal Inspection - Respiratory Exam Respiratory Exam: Clear to Auscultation Bilateral. absent: Rales, Rhonchi, Wheezes - Cardiovascular Exam Cardiovascular Exam: REGULAR RHYTHM, +S1, +S2 - GI/Abdominal Exam GI & Abdominal Exam: Normal Bowel Sounds, Soft, Tenderness. absent: Guarding, Rebound Additional comments: RUQ and right flank. CVTA right side - Extremities Exam Extremities exam: Positive for: normal inspection. Negative for: pedal edema, tenderness - Back Exam Back exam: CVA tenderness (R), NORMAL INSPECTION - Neurological Exam Neurological exam: Alert, Oriented x3 - Psychiatric Exam Psychiatric exam: Normal Mood - Skin Skin Exam: Intact Results - Vital Signs Recent Vital Signs: Last Vital Signs Temp 97.8 F 04/16/17 04:42 Pulse 51 L 04/16/17 04:42 Resp 16 04/16/17 04:42 BP 97/63 L 04/16/17 04:42 Pulse Ox 94 L 04/16/17 04:42 - Labs Result Diagrams: 04/15/17 20:45 04/15/17 20:45 Labs: Laboratory Results - last 24 hr 04/15/17 04/15/17 04/15/17 20:45 20:45 21:00 WBC 6.7 RBC 5.27 Hgb 15.0 Hct 45.4 MCV 86.2 MCH 28.4 MCHC 32.9 L RDW 13.9 Plt Count 164 MPV 9.8 Neut % (Auto) 57.5 Lymph % (Auto) 32.0 [place] % (Auto) 8.5 Eos % (Auto) 1.7 Baso % (Auto) 0.3 Neut # (Auto) 3.9 Lymph # (Auto) 2.2 [place] # (Auto) 0.6 Eos # (Auto) 0.1 Baso # (Auto) 0.0 Sodium 142 Potassium 3.7 Chloride 101 Carbon Dioxide 30 Anion Gap 15 BUN 25 H Creatinine 0.9 Est GFR ( Amer) > 60 Est GFR (Non-Af Amer) > 60 Random Glucose 84 Calcium 9.5 Total Bilirubin 0.7 AST 36 ALT 49 Alkaline Phosphatase 86 Troponin I < 0.0120 Total Protein 7.5 Albumin 4.4 Globulin 3.1 Albumin/Globulin Ratio 1.4 Lipase 81 Urine Color Yellow Urine Clarity Slighty-cloudy Urine pH 5.0 Ur Specific [place] 1.029 Urine Protein 30 Urine Glucose (UA) Neg Urine Ketones Negative Urine Blood Negative Urine Nitrate Negative Urine Bilirubin Negative Urine Urobilinogen 2.0 Ur Leukocyte Esterase Neg Urine RBC (Auto) 2 Urine Microscopic WBC 2 Ur Squamous Epith Cells < 1 Urine Bacteria Rare 04/16/17 04:46 WBC RBC Hgb Hct MCV MCH MCHC RDW Plt Count MPV Neut % (Auto) Lymph % (Auto) [place] % (Auto) Eos % (Auto) Baso % (Auto) Neut # (Auto) Lymph # (Auto) [place] # (Auto) Eos # (Auto) Baso # (Auto) Sodium Potassium Chloride Carbon Dioxide Anion Gap BUN Creatinine Est GFR ( Amer) Est GFR (Non-Af Amer) Random Glucose Calcium Total Bilirubin AST ALT Alkaline Phosphatase Troponin I < 0.0120 Total Protein Albumin Globulin Albumin/Globulin Ratio Lipase Urine Color Urine Clarity Urine pH Ur Specific [place] Urine Protein Urine Glucose (UA) Urine Ketones Urine Blood Urine Nitrate Urine Bilirubin Urine Urobilinogen Ur Leukocyte Esterase Urine RBC (Auto) Urine Microscopic WBC Ur Squamous Epith Cells Urine Bacteria Assessment & Plan - Assessment and Plan (Free Text) Plan: 56 yo ,m, PMHx/o HTN, Gout, NSTEMI( Cardiac cath with normal findings at [facility](as per patient) admitted for Observation of Chest pain and Diverticulitis. Assessment/Plan 1) Chest pain -to r/o ACS -EKG sinus bradycardia HR: 56, no ischemic changes, trop x1 neg, CXR no active disease. pending report. -Hx/o NSTEMI.hospitalised in [facility] with chest pain. Elevated Troponins were found and the pt underwent a cor angio at [facility]. No coronary intervention was required (??Normal coronaries) -Patient seen by creative art director Dr Holloway 01/12/17. Suggested stress test. patient did not did it. -To consider [employer] consult this admission. -f/u 2 troponin, EKG -Admit tele 2) Abdominal pain -secondary to diverticulitis -CT Abd: . No definite CT evidence of urolithiasis. Possible early diverticulitis of right colon. -s/p Cipro/flagyl x 1 dose ED -Cipro 400 mg IV BID+ Flagyl 500 mg IV Q6h -NPO, IV fluids 3) Hx/o HTN -only taking daily Aspirin -Lipid profile normal 11/2016 4) Hx/o Gout -no taking medication 5) DVT Prophylaxis -Lovenox 40 mg sc daily
[2017-04-16] MEDS ORDERED: Ciprofloxacin 400mg/200ml D5W 400 MG/200 ML BAG IVPB ONE (09:42)
[2017-04-16] MEDS: Ciprofloxacin 400mg/200ml D5W 400 MG/200 ML BAG IVPB SCH ×2 (09:42→22:12)
[2017-04-16] MEDS: Enoxaparin 40 mg Syringe SC SCH (10:20)
--- NOTE | 2017-04-16 11:11 | CARD ---
APPROVED REPORT EKG Measurement Heart [id number] <Conclusion> Sinus bradycardia Inferior infarct, age undetermined Abnormal ECG
--- NOTE | 2017-04-16 11:18 | CARD ---
APPROVED REPORT EKG Measurement Heart [id number] [place] [id number] <Conclusion> Sinus bradycardia Otherwise normal ECG
--- NOTE | 2017-04-16 11:30 | RAD ---
HISTORY: routine COMPARISON: Comparison made with chest radiograph 11/25/2016 TECHNIQUE: Chest PA and lateral FINDINGS: LUNGS: There appears to be some mild atelectasis in the left lower lung field. PLEURA: No significant pleural effusion identified. No pneumothorax apparent. CARDIOVASCULAR: Normal. OSSEOUS STRUCTURES: Mild multilevel degenerative spondylosis of the thoracic spine escape last CT scan chest 7. VISUALIZED UPPER ABDOMEN: Normal. OTHER FINDINGS: None. IMPRESSION: Mild atelectasis left lower lung field.
[2017-04-17] MEDS: Sodium Chloride 0.9% 1,000 ML IV SCH (01:00)
[2017-04-17] MEDS: metroNIDAZOLE 500mg/100ml NS 100 ML IVPB SCH ×2 (04:21→08:59)
[2017-04-17 08:31] VITALS: BP 123/75; PULSE 60; RESP 19; TEMP 97.6; O2SAT 95
[2017-04-17] MEDS: Enoxaparin 40 mg Syringe SC SCH (08:58)
[2017-04-17] MEDS: Ciprofloxacin 400mg/200ml D5W 400 MG/200 ML BAG IVPB SCH (08:59)
--- NOTE | 2017-04-17 13:34 | CP.PCM.DIS ---
Provider - Provider Date of Admission: 04/15/17 22:46 Attending physician: Radha Cardoso MD Time Spent in preparation of Discharge (in minutes): 15 Diagnosis - Discharge Diagnosis (1) Diverticulitis Status: Acute Hospital Course - Lab Results Lab Results: Most Recent Lab Values WBC 6.7 K/uL (4.8-10.8) 04/15/17 20:45 RBC 5.27 Mil/uL (4.40-5.90) 04/15/17 20:45 Hgb 15.0 g/dL (12.0-18.0) 04/15/17 20:45 Hct 45.4 % (35.0-51.0) 04/15/17 20:45 MCV 86.2 fl (80.0-94.0) 04/15/17 20:45 MCH 28.4 pg (27.0-31.0) 04/15/17 20:45 MCHC 32.9 g/dL (33.0-37.0) L 04/15/17 20:45 RDW 13.9 % (11.5-14.5) 04/15/17 20:45 Plt Count 164 K/uL (130-400) 04/15/17 20:45 MPV 9.8 fl (7.2-11.7) 04/15/17 20:45 Neut % (Auto) 57.5 % (50.0-75.0) 04/15/17 20:45 Lymph % (Auto) 32.0 % (20.0-40.0) 04/15/17 20:45 [place] % (Auto) 8.5 % (0.0-10.0) 04/15/17 20:45 Eos % (Auto) 1.7 % (0.0-4.0) 04/15/17 20:45 Baso % (Auto) 0.3 % (0.0-2.0) 04/15/17 20:45 Neut # (Auto) 3.9 K/uL (1.8-7.0) 04/15/17 20:45 Lymph # (Auto) 2.2 K/uL (1.0-4.3) 04/15/17 20:45 [place] # (Auto) 0.6 K/uL (0.0-0.8) 04/15/17 20:45 Eos # (Auto) 0.1 K/uL (0.0-0.7) 04/15/17 20:45 Baso # (Auto) 0.0 K/uL (0.0-0.2) 04/15/17 20:45 Sodium 142 mmol/l (132-148) 04/15/17 20:45 Potassium 3.7 MMOL/L (3.6-5.0) 04/15/17 20:45 Chloride 101 mmol/L (98-107) 04/15/17 20:45 Carbon Dioxide 30 mmol/L (22-30) 04/15/17 20:45 Anion Gap 15 (10-20) 04/15/17 20:45 BUN 25 mg/dl (9-20) H 04/15/17 20:45 Creatinine 0.9 mg/dl (0.8-1.5) 04/15/17 20:45 Est GFR ( Amer) > 60 04/15/17 20:45 Est GFR (Non-Af Amer) > 60 04/15/17 20:45 Random Glucose 84 mg/dL (75-110) 04/15/17 20:45 Calcium 9.5 mg/dL (8.4-10.2) 04/15/17 20:45 Total Bilirubin 0.7 mg/dl (0.2-1.3) 04/15/17 20:45 AST 36 U/L (17-59) 04/15/17 20:45 ALT 49 U/L (21-72) 04/15/17 20:45 Alkaline Phosphatase 86 U/L (38-126) 04/15/17 20:45 Troponin I < 0.0120 ng/mL (0.00-0.120) 04/16/17 12:50 Total Protein 7.5 G/DL (6.3-8.2) 04/15/17 20:45 Albumin 4.4 g/dL (3.5-5.0) 04/15/17 20:45 Globulin 3.1 gm/dL (2.2-3.9) 04/15/17 20:45 Albumin/Globulin Ratio 1.4 (1.0-2.1) 04/15/17 20:45 Lipase 81 U/L (23-300) 02/01/18 20:45 Urine Color Yellow (YELLOW) 04/15/17 21:00 Urine Clarity Slighty-cloudy (Clear) 04/15/17 21:00 Urine pH 5.0 (5.0-8.0) 04/15/17 21:00 Ur Specific [place] 1.029 (1.003-1.030) 04/15/17 21:00 Urine Protein 30 mg/dL (NEGATIVE) 04/15/17 21:00 Urine Glucose (UA) Neg mg/dL (Normal) 04/15/17 21:00 Urine Ketones Negative mg/dL (NEGATIVE) 04/15/17 21:00 Urine Blood Negative (NEGATIVE) 04/15/17 21:00 Urine Nitrate Negative (NEGATIVE) 04/15/17 21:00 Urine Bilirubin Negative (NEGATIVE) 04/15/17 21:00 Urine Urobilinogen 2.0 mg/dL (0.2-1.0) 04/15/17 21:00 Ur Leukocyte Esterase Neg [place]/uL (Negative) 04/15/17 21:00 Urine RBC (Auto) 2 /hpf (0-3) 04/15/17 21:00 Urine Microscopic WBC 2 /hpf (0-5) 04/15/17 21:00 Ur Squamous Epith Cells < 1 /hpf (0-5) 04/15/17 21:00 Urine Bacteria Rare (<OCC) 04/15/17 21:00 - Hospital Course Hospital Course: 56 y/o man w/ pmh HTN, Gout, NSTEMI (Cardiac cath with normal findings at [facility], as per patient) presents to ED w/ complaint of abdominal pain and chest pain started 4 days ago. Patient in ED had vitals WNL, CBC WNL, CMP slightly elevated BUN, negative troponin, urine normal, EKG sinus ilsa w/ no acute changes, CXR WNL, and CT abdomen showing right sided diverticulitis. Patient was given IV fluids, zofran, dilaudid, cipro, flagyl, and toradol. Patient reported improvement upon transport to [facility]. Chest pain unlikely cardiac in nature and resolved. Abdominal pain improved w/ minimal pain medication. Patient tolerated advancing diets. Patient has been seen, examined , and deemed medically fit for discharge home. Patient will be sent home to finish course of ciprofloxacin 500 mg PO Q12h and metronidazole 500 mg PO Q6h for 5 days. Patient counseled to follow up w/ PMD. Discharge Exam - Head Exam Head Exam: ATRAUMATIC, NORMOCEPHALIC - Eye Exam Eye Exam: Normal appearance - ENT Exam ENT Exam: Mucous Membranes Moist - Respiratory Exam Respiratory Exam: Clear to PA & Lateral, NORMAL BREATHING PATTERN. absent: Decreased Breath Sounds, Prolonged Expiratory Phase, Rales, Rhonchi, Wheezes, Respiratory Distress - Cardiovascular Exam Cardiovascular Exam: REGULAR RHYTHM. absent: Tachycardia - GI/Abdominal Exam GI & Abdominal Exam: Normal Bowel Sounds, Soft. absent: Distended, Guarding, Mass, Organomegaly, Rebound, Tenderness - Extremities Exam Extremities exam: normal inspection - Neurological Exam Neurological exam: Alert, Normal Gait, Oriented x3 - Skin Skin Exam: Dry, Intact, Normal Color, Warm Discharge Plan - Discharge Medications Prescriptions: Ciprofloxacin [Cipro] 500 mg PO Q12 5 Days #10 tab Metronidazole [Flagyl] 500 mg PO Q6 5 Days #20 tab - Follow Up Plan Condition: FAIR Disposition: HOME/ ROUTINE Instructions: Diverticulitis (DC), Diverticulitis (GEN), Diverticulitis Diet ( DC), Diverticulitis Diet (GEN)
== END 2017-04-17 14:30 | disposition home or self-care (01) ==
LOC: H.ER 19:14 → H.ERHOLD 22:46 → H.MEDSURG1 04-16 13:07
PROVIDERS: ADMIT Family Medicine Geriatric Medicine; ATTEND Family Medicine Geriatric Medicine
DX: K57.32 Diverticulitis of large intestine without perforation or abscess without bleeding (principal); I10 Essential (primary) hypertension; M10.9 Gout, unspecified; K59.00 Constipation, unspecified; R07.9 Chest pain, unspecified; Z98.61 Coronary angioplasty status; I25.2 Old myocardial infarction
CPT/HCPCS: 71046; 74176; 80053; 81003; 83690; 84484; 85025; 87086; 93005; 96361; 96365; 96366; 96372; 96375; 96376; 99285; G0378; J0744; J1170; J1650; J1885; J2405; J7040

== ENCOUNTER 2017-04-27 14:26 | Emergency (ER) | payer SELFPAY ==
[2017-04-27 14:26] VITALS: BMI 28.4
[2017-04-27 14:39] VITALS: BP 137/75; PULSE 73; RESP 18; TEMP 97.8; O2SAT 99
[2017-04-27] MEDS ORDERED: Morphine 4 MG/ML VIAL IVP ONE (14:59)
--- NOTE | 2017-04-27 14:59 | ED PDOC ---
HPI: Wound Care - HPI Time Seen by Provider: 04/27/17 14:54 Chief Complaint (Nursing): Upper Extremity Problem/Injury Chief Complaint (Provider): Left index finger laceration History Per: Patient Exam Limitations: no limitations Onset/Duration Of Symptoms: Mins (x30) Current Symptoms Are (Timing): Still Present Additional Complaint(s): 56 year old male presents to the ER for evaluation of a left finger injury, sustained 30 min prior to arrival. States he was using a saw and it accidentally went through the left index finger. Now patient reports numbness to the left index finger tip. Last tetanus was approximately 5 years ago. PMD: Dr. Wilfred Hardy Past Medical History Reviewed: Historical Data, Nursing Documentation, Vital Signs Vital Signs: Last Vital Signs Temp 97.8 F 04/27/17 14:34 Pulse 73 04/27/17 14:34 Resp 18 04/27/17 14:34 BP 137/75 04/27/17 14:34 Pulse Ox 99 04/27/17 14:34 - Medical History PMH: HTN Denies: Chronic Kidney Disease - Surgical History Surgical History: Cholecystectomy - Family History Family History: States: Unknown Family Hx - Social History Current smoker - smoking cessation education provided: No Alcohol: None Drugs: Denies - Immunization History Hx Tetanus Toxoid Vaccination: Yes (5 years ago) - Home Medications Home Medications: Ambulatory Orders Medication Instructions Recorded Aspirin [Ecotrin] 81 mg PO DAILY 11/25/16 Ciprofloxacin [Cipro] 500 mg PO Q12 5 Days #10 tab 04/17/17 Metronidazole [Flagyl] 500 mg PO Q6 5 Days #20 tab 04/17/17 Clindamycin [Cleocin] 300 mg PO BID #14 cap 04/27/17 Ibuprofen [Motrin] 600 mg PO Q6 #20 tab 04/27/17 - Allergies Allergies/Adverse Reactions: Allergies Allergy/AdvReac Type Severity Reaction Status Date / Time Penicillins Allergy RASH Verified 09/13/15 20:50 Review of Systems ROS Statement: Except As Marked, All Systems Reviewed And Found Negative Skin: Positive for: Lesions (to left index finger) Neurological: Positive for: Weakness (unable to flex finger), Numbness (to left index fingertip) Physical Exam - Reviewed Nursing Documentation Reviewed: Yes Vital Signs Reviewed: Yes - Physical Exam Appears: Positive for: Non-toxic, No Acute Distress Head Exam: Positive for: ATRAUMATIC, NORMOCEPHALIC Skin: Positive for: Normal Color, Warm, Dry Eye Exam: Positive for: EOMI, Normal appearance, PERRL Neck: Positive for: Normal, Painless ROM Extremity: Positive for: Other (Near circumferential 2.5 cm laceration under base of nail bed at distal phalanx of left 2nd digit. (+)Discoloration. Unable to flex/extend at DIP and PIP). Negative for: Normal ROM Neurologic/Psych: Positive for: Alert, Oriented - Laboratory Results Result Diagrams: 04/27/17 15:20 04/27/17 15:20 - ECG O2 Sat by Pulse Oximetry: 99 (RA) Pulse Ox Interpretation: Normal Medical Decision Making Medical Decision Making: Time: 14:56 Initial Plan: --Blood type and screen --BMP --CBC --PTT --Prothrombin time --Clindamycin 600 mg IV --Morphine 4 mg IV --X-Ray Left Hand 2nd Digit --Reevaluation 16:18 X-RAY LEFT HAND: FINDINGS: LEFT INDEX FINGER: Acute fracture/transection of the distal phalanx left 2nd digit. Remainder of the left hand (as seen on the AP view) grossly intact. JOINTS: Normal. SOFT TISSUES: Soft tissue swelling attests to the acuity of the fracture. No visulaized radiopaque/visualized foreign body. OTHER FINDINGS: None. IMPRESSION: Acute soft tissue injury/ fracture distal phalanx left index finger. Paged Dr. Garcia, reviewed imaging results, and he will see patient in the ED. 17:41 Dr. Garcia at bedside, repairing laceration. Recommends patient be discharged home with Clindamycin. Patient will follow up in Dr. Garcia's office. There is agreement to discharge plan. Return if symptoms persist or worsen. Scribe Attestation: Documented by Janna Alfonso, acting as a scribe for Leonarda Don PA-C Provider Scribe Attestation: All medical record entries made by the Scribe were at my direction and personally dictated by me. I have reviewed the chart and agree that the record accurately reflects my personal performance of the history, physical exam, medical decision making, and the department course for this patient. I have also personally directed, reviewed, and agree with the discharge instructions and disposition. Disposition - Clinical Impression Clinical Impression: Laceration - Patient ED Disposition Is Patient to be Admitted: Transfer of Care Counseled Patient/Family Regarding: Diagnosis, Need For Followup, Rx Given - Disposition Referrals: Adam Garcia MD [Staff Provider] - Disposition: Routine/Home Disposition Time: 18:10 Condition: STABLE Prescriptions: Clindamycin [Cleocin] 300 mg PO BID #14 cap Ibuprofen [Motrin] 600 mg PO Q6 #20 tab Instructions: Laceration (ED) Forms: [employer] (Sinhala) Patient Signed Over To: Tara Narayanan Handoff Comments: PENDING REPAIR AND D/C HOME
[2017-04-27] MEDS ORDERED: Morphine 4 MG/ML VIAL ONE (15:01)
[2017-04-27 15:34] LABS: BASO % 0.4 % (0.0-2.0); EOS # 0.1 K/uL (0.0-0.7); EOS % 0.9 % (0.0-4.0); HEMOGLOBIN 14.2 g/dL (12.0-18.0); LYMPH # 1.4 K/uL (1.0-4.3); LYMPH % 19.8 % (20.0-40.0); MEAN CELL VOLUME 85.6 fl (80.0-94.0); MEAN CORPUSCULAR HEMOGLOBIN 28.5 pg (27.0-31.0); MEAN CORPUSCULAR HGB CONC 33.4 g/dL (33.0-37.0); MEAN PLATELET VOLUME 9.7 fl (7.2-11.7); MONO # 0.8 K/uL (0.0-0.8); MONO % 11.7 % (0.0-10.0); NEUT # 4.7 K/uL (1.8-7.0); NEUT % 67.2 % (50.0-75.0); NRBC % 0.2 % (0.0-0.0); RBC 4.98 Mil/uL (4.40-5.90); RED CELL DISTRIBUTION WIDTH 13.7 % (11.5-14.5)
[2017-04-27 15:45] LABS: BLOOD UREA NITROGEN 19 mg/dl (9-20); CALCIUM 9.6 mg/dL (8.4-10.2); GFR AFRICAN-AMERICAN > 60; GFR NON-AFRICAN AMERICAN > 60
[2017-04-27] MEDS ORDERED: Clindamycin 600mg/50ml NS 600 MG/50 ML BAG IVPB STA (15:57)
[2017-04-27 16:13] LABS: INR 1.1 (0.9-1.2); PARTIAL THROMBOPLASTIN TIME 31.6 Seconds (25.6-37.1); PROTHROMBIN TIME 12.5 Seconds (9.8-13.1)
--- NOTE | 2017-04-27 16:19 | RAD ---
PROCEDURE: Left Index finger radiographs. HISTORY: FINGER AMPUTATION COMPARISON: None. TECHNIQUE: AP radiograph of the left hand, as well as spot oblique and lateral images of index finger were obtained. FINDINGS: LEFT INDEX FINGER: Acute fracture/transection of the distal phalanx left 2nd digit. Remainder of the left hand (as seen on the AP view) grossly intact. JOINTS: Normal. SOFT TISSUES: Soft tissue swelling attests to the acuity of the fracture. No visulaized radiopaque/visualized foreign body. OTHER FINDINGS: None. IMPRESSION: Acute soft tissue injury/ fracture distal phalanx left index finger.
[2017-04-27] MEDS ORDERED: Lidocaine 1% Inj (20ml) IJ ONE (16:22)
[2017-04-27] MEDS ORDERED: Lidocaine 1% Inj (20ml) ONE (16:24)
== END 2017-04-27 18:50 | disposition home or self-care (01) ==
LOC: H.ER 14:26
DX: S61.211A Laceration without foreign body of left index finger without damage to nail, initial encounter (principal); W27.8XXA Contact with other nonpowered hand tool, initial encounter
CPT/HCPCS: 12001; 73140; 80048; 85025; 85610; 85730; 86850; 86900; 96374; 96375; 99283; J2270; J2405

== ENCOUNTER 2018-06-17 17:11 | Emergency (ER) | payer OTHER ==
[2018-06-17 17:11] VITALS: BMI 28.4
[2018-06-17 17:19] VITALS: BP 165/97; PULSE 67; RESP 19; TEMP 97.6; O2SAT 100
[2018-06-17] MEDS ORDERED: Sodium Chloride 0.9% 1,000 ML IV STA (17:35)
--- NOTE | 2018-06-17 17:38 | ED PDOC ---
HPI: Abdomen Time Seen by Provider: 06/17/18 17:21 Chief Complaint (Nursing): Abdominal Pain History Per: Patient Onset/Duration Of Symptoms: Days (7) Current Symptoms Are (Timing): Intermittent Episodes Severity: Moderate Location Of Pain/Discomfort: RLQ Associated Symptoms: Nausea, Vomiting. denies: Fever Exacerbating Factors: None Alleviating Factors: None Additional Complaint(s): Right sided abd pain intermittently x 1 week. Worse over past 2 days. Assoc with nausea and vomiting but no diarrhea or fever. Denies urinary sxs. Past Medical History Vital Signs: Last Vital Signs Temp 97.6 F 06/17/18 17:13 Pulse 67 06/17/18 17:13 Resp 19 06/17/18 17:13 BP 165/97 H 06/17/18 17:13 Pulse Ox 100 06/17/18 17:13 - Medical History PMH: Diverticulitis, HTN Denies: Chronic Kidney Disease - Surgical History Surgical History: Appendectomy, Cholecystectomy - Family History Family History: States: Unknown Family Hx - Immunization History Hx Tetanus Toxoid Vaccination: Yes (5 years ago) - Home Medications Home Medications: Ambulatory Orders Medication Instructions Recorded Aspirin [Ecotrin] 81 mg PO DAILY 11/25/16 Ciprofloxacin [Cipro] 500 mg PO Q12 5 Days #10 tab 04/17/17 Metronidazole [Flagyl] 500 mg PO Q6 5 Days #20 tab 04/17/17 Clindamycin [Cleocin] 300 mg PO BID #14 cap 04/27/17 Ibuprofen [Motrin] 600 mg PO Q6 #20 tab 04/27/17 Cyclobenzaprine [Cyclobenzaprine 10 mg PO Q8 PRN #14 tab 05/13/18 HCl] Meloxicam [Mobic] 15 mg PO DAILY PRN #10 tab 05/13/18 - Allergies Allergies/Adverse Reactions: Allergies Allergy/AdvReac Type Severity Reaction Status Date / Time Penicillins Allergy ANAPHYLAXIS Verified 05/13/18 19:21 Review of Systems ROS Statement: Except As Marked, All Systems Reviewed And Found Negative Constitutional: Negative for: Fever, Chills Gastrointestinal: Positive for: Nausea, Vomiting, Abdominal Pain. Negative for: Diarrhea, Melena, Hematochezia, Hematemesis Genitourinary Male: Negative for: Dysuria, Frequency Physical Exam - Reviewed Nursing Documentation Reviewed: Yes Vital Signs Reviewed: Yes - Physical Exam Appears: Positive for: Non-toxic, No Acute Distress Head Exam: Positive for: ATRAUMATIC, NORMAL INSPECTION, NORMOCEPHALIC Skin: Positive for: Normal Color, Warm, DRY Eye Exam: Positive for: EOMI, Normal appearance, PERRL ENT: Positive for: Normal ENT Inspection Neck: Positive for: Normal, Painless ROM Cardiovascular/Chest: Positive for: Regular Rate, Rhythm Respiratory: Positive for: CNT, Normal Breath Sounds Gastrointestinal/Abdominal: Positive for: Soft, Tenderness (RLQ). Negative for: Rebound Back: Positive for: Normal Inspection Extremity: Positive for: Normal ROM Neurological/Psych: Positive for: Awake, Alert, Normal Tone - ECG O2 Sat by Pulse Oximetry: 100 Medical Decision Making Medical Decision Making: Pt states he still has his appendix Disposition - Clinical Impression Clinical Impression: Abdominal pain - Patient ED Disposition Is Patient to be Admitted: Transfer of Care - Disposition Disposition: Transfer of Care Disposition Time: 18:59 Condition: FAIR Forms: [employer] ([place]) Patient Signed Over To: Bryan Belcher (Pending CT and reeval)
[2018-06-17 18:55] LABS: BASO % 0.5 % (0.0-2.0); HEMOGLOBIN 15.1 g/dL (12.0-18.0); LYMPH # 1.7 K/uL (1.0-4.3); LYMPH % 40.2 % (20.0-40.0); MEAN CELL VOLUME 86.6 fl (80.0-94.0); MEAN CORPUSCULAR HEMOGLOBIN 29.2 pg (27.0-31.0); MEAN CORPUSCULAR HGB CONC 33.8 g/dL (33.0-37.0); MEAN PLATELET VOLUME 10.2 fl (7.2-11.7); MONO # 0.4 K/uL (0.0-0.8); MONO % 10.2 % (0.0-10.0); NEUT % 48.1 % (50.0-75.0); RBC 5.18 Mil/uL (4.40-5.90); RED CELL DISTRIBUTION WIDTH 13.4 % (11.5-14.5); WHITE BLOOD COUNT 4.2 K/uL (4.8-10.8)
[2018-06-17 19:09] LABS: ALB/GLOB RATIO 1.4 (1.0-2.1); ALBUMIN 4.4 g/dL (3.5-5.0); ALT/SGPT 48 U/L (21-72); AST/SGOT 46 U/L (17-59); BLOOD UREA NITROGEN 23 mg/dl (9-20); CALCIUM 9.6 mg/dL (8.4-10.2); GFR NON-AFRICAN AMERICAN > 60
--- NOTE | 2018-06-17 19:15 | ED PDOC ---
- Laboratory Results Result Diagrams: 06/17/18 18:52 06/17/18 18:52 Lab Results: Total Bilirubin 1.0 mg/dl (0.2-1.3) 06/17/18 18:52 AST 46 U/L (17-59) 06/17/18 18:52 ALT 48 U/L (21-72) 06/17/18 18:52 Alkaline Phosphatase 81 U/L (38-126) 06/17/18 18:52 Total Protein 7.5 G/DL (6.3-8.2) 06/17/18 18:52 Albumin 4.4 g/dL (3.5-5.0) 06/17/18 18:52 Globulin 3.1 gm/dL (2.2-3.9) 06/17/18 18:52 Albumin/Globulin Ratio 1.4 (1.0-2.1) 06/17/18 18:52 - ECG O2 Sat by Pulse Oximetry: 100 Medical Decision Making Medical Decision Making: Time: 1899 --Patient is endorsed to provider by Dr. Lundberg, pending CT ABD/pelvis results and re-evaluation. Time: 2014 --CT ABD/pelvis FINDINGS: LUNG BASES: The lung bases appear clear. No pleural effusions are seen. LIVER: There is hepatomegaly. The liver measured 18.0 cm in the midclavicular line. GALLBLADDER AND BILE DUCTS: Status post cholecystectomy. No biliary ductal dilatation is evident. PANCREAS: Unremarkable. SPLEEN: Unremarkable. ADRENAL GLANDS: Unremarkable. KIDNEYS, URETERS, AND BLADDER: The kidneys appear within normal limits. There is no hydronephrosis or hydroure ter. No urinary calculi are seen. The urinary bladder appeared normal in size and configuration. STOMACH AND BOWEL: Unremarkable appearance of the stomach and bowel. No evidence of bowel obstruction. No evidence suggesting enteritis or colitis. Mild diverticulosis coli noted in the sigmoid colon without evidence of acute diverticulitis. APPENDIX: No evidence of acute appendicitis on CT examination. PERITONEUM: No free fluid. No free air. LYMPH NODES: No lymphadenopathy is evident. REPRODUCTIVE: Unremarkable as visualized. VASCULATURE: No evidence of abdominal aortic aneurysm. Minor atherosclerotic vascular plaquing is present. BONES: No aggressive appearing osseous lesion. No acute osseous pathology evident. There is evidence of degenerative disc disease at T12-L1 and all levels of the lumbar spine. IMPRESSION: 1. Hepatomegaly. 2. Status post cholecystectomy. 3. Diverticulosis coli of the sigmoid colon. No acute diverticulitis. 4. Evidence of degenerative disc disease at T12-L1 and all levels of the lumbar spine. 5. No significant interval change is identified. Time: 2100 --Upon provider reevaluation, patient is medically stable, reports improvement in symptoms, and requires no further treatment in the ED at this time. Patient w ill be discharged home with Rx for Bentyl and Zofran. Counseling was provided and all questions were answered regarding. There is agreement to discharge plan. Return if symptoms persist or worsen. Clinical Impression: Abdominal pain Scribe Attestation: Documented by Betsy Syed, acting as a scribe for Bryan Belcher MD. Provider Scribe Attestation: All medical record entries made by the Scribe were at my direction and personally dictated by me. I have reviewed the chart and agree that the record accurately reflects my personal performance of the history, physical exam, medical decision making, and the department course for this patient. I have also personally directed, reviewed, and agree with the discharge instructions and disposition. Disposition Counseled Patient/Family Regarding: Studies Performed, Diagnosis, Rx Given - Clinical Impression Clinical Impression: Abdominal pain - POA Present On Arrival: None - Disposition Disposition: Routine/Home Disposition Time: 21:00 Condition: IMPROVED Prescriptions: Dicyclomine [Bentyl] 20 mg PO Q12 PRN #20 tab PRN Reason: abdominal pain/diarrhea Ondansetron ODT [Zofran ODT] 4 mg PO Q6 PRN #8 odt PRN Reason: Nausea/Vomiting Instructions: Nausea and Vomiting, Adult (DC) Forms: [employer] (Arabic) Print Language: DUTCH
[2018-06-17] MEDS ORDERED: Sodium Chloride 0.9% 50 ML IV ONE (19:22)
[2018-06-17] MEDS ORDERED: Iohexol 300 100 ML IJ ONE (19:22)
[2018-06-17 20:21] LABS: URINE BILIRUBIN NEGATIVE (NEGATIVE); URINE BLOOD NEGATIVE (NEGATIVE); URINE CLARITY CLEAR (Clear); URINE COLOR YELLOW (YELLOW); URINE GLUCOSE (UA) NEG (NEGATIVE); URINE LEUKOCYTE ESTERASE NEG Leu/uL (Negative); URINE PROTEIN NEGATIVE (NEGATIVE); URINE UROBILINOGEN 0.2-1.0 mg/dL (0.2-1.0)
--- NOTE | 2018-06-18 14:17 | CT ---
Date of service: 06/17/2018 PROCEDURE: CT Abdomen and Pelvis with contrast HISTORY: Abd pain COMPARISON: CT abdomen and pelvis without contrast performed 04/15/17 TECHNIQUE: Contrast dose: 95 mL Omnipaque 300 IV Radiation dose: Total exam DLP = 779.19 mGy-cm. This CT exam was performed using one or more of the following dose reduction techniques: Automated exposure control, adjustment of the mA and/or kV according to patient size, and/or use of iterative reconstruction technique. FINDINGS: LOWER THORAX: No visible consolidation, pleural effusion, or pneumothorax. LIVER: Hypoattenuation of the liver compatible with hepatic steatosis. GALLBLADDER AND BILE DUCTS: Cholecystectomy. PANCREAS: Unremarkable. SPLEEN: Unremarkable. ADRENALS: Unremarkable. KIDNEYS AND URETERS: The kidneys enhance symmetrically. No hydronephrosis or obstructing calculus identified. VASCULATURE: No aortic aneurysm. Atherosclerotic calcifications of the aorta. BOWEL: Stomach is nondistended. Lack of oral contrast limits evaluation for bowel pathology. Bowel loops appear within normal limits of caliber without evidence of obstruction. Diverticulosis without CT evidence of acute diverticulitis. APPENDIX: The appendix appears within normal limits of caliber. No secondary signs of acute appendicitis. PERITONEUM: No significant free fluid. No definite free air. LYMPH NODES: No bulky adenopathy identified. BLADDER: Unremarkable. REPRODUCTIVE: Unremarkable. BONES: Osseous demineralization. Degenerative changes most pronounced at L5-S1. OTHER FINDINGS: None. IMPRESSION: Hepatic steatosis. Cholecystectomy. Diverticulosis without CT evidence of acute diverticulitis. Preliminary impression was provided by [employer].
--- NOTE | 2018-06-18 15:15 | CARD ---
APPROVED REPORT Date of service: 06/17/2018 EKG Measurement Heart [id number] [place] [id number] <Conclusion> Normal sinus rhythm Normal ECG
== END 2018-06-17 22:10 | disposition home or self-care (01) ==
LOC: H.ER 17:11
DX: K57.30 Diverticulosis of large intestine without perforation or abscess without bleeding (principal); Z79.82 Long term (current) use of aspirin; I10 Essential (primary) hypertension; Z88.0 Allergy status to penicillin
CPT/HCPCS: 74177; 80053; 81003; 85025; 93005; 96374; 96375; 99283; J1885; J2405; J7030; Q9967